=== PATIENT | female | born 1945 ===

== ENCOUNTER 2017-07-21 09:24 | Day surgery (SDC) | payer MEDICARE, MEDICAID ==
[2017-07-21] VITALS (9 sets, daily range): BP systolic 83–148; BP diastolic 44–69
[~2017-07-21] VITALS: Ht 154.9 cm; Wt 61.2 kg
[~2017-07-21 09:24] MED LIST: AMLODIPINE BESYL5 MG ORAL; ASPIRIN-LOW81 MG ORAL; CALCIUM PO; GLIPIZIDE5 MG ORAL; METFORMIN HCL850 M1 ORAL; VASOTEC10 MG ORAL
--- NOTE | 2017-07-21 09:54 | Pre-Procedure Note/Attestation ---
Pre-Procedure Note/Attestation Complete Prior to Procedure Planned Procedure: right Procedure Narrative: percutaneous fixation of right fifth metatarsal fracture, possible open reduction internal fixation of right fifth metatarsal Indications for Procedure Pre-Operative Diagnosis: displaced fracture of right fifth metatarsal base pain right foot Attestation I attest that I discussed the nature of the procedure; its benefits; risks and complications; and alternatives (and the risks and benefits of such alternatives ), prior to the procedure, with the patient (or the patient's legal traveling sales representative). Discussed complications which include but are not limited to: non union, mal union, delayed union, chronic numbness / tingling, chronic pain, infection, dvt, pe, hematoma, seroma, need for screw removal, hardware pain, crps, anesthesia complications, . She verbalized agreement with surgical plan and we obtained consent. I attest that, if there was a reasonable possibility of needing a blood transfusion, the patient (or the patient's legal traveling sales representative) was given the [place] [employer] standardized written summary, pursuant to the [place] Blood Safety Act ([place] Health and Safety Code # 1645, as amended). I attest that I re-evaluated the patient just prior to the surgery and that there has been no change in the patient's H&P, except as documented below: N/A HOLLY GONGORA M.D. Jul 21, 2017 09:54
[2017-07-21] MEDS ORDERED: Lidocaine 1% Plain 30 ml INJ ONE (10:18)
[2017-07-21] MEDS ORDERED: Bupivacaine 0.25% Inj 30ml INJ ONE (10:18)
[2017-07-21] MEDS ORDERED: Propofol 1,000mg/ 100ml btl IV ONE (11:00)
[2017-07-21] MEDS ORDERED: fentaNYL 100 mcg/2 mL IV ONE (11:00)
[2017-07-21] MEDS ORDERED: LR 1000ml ONE (11:00)
[2017-07-21] MEDS ORDERED: NS Irrig 1000ml IRRIG ONE (11:45)
[2017-07-21] MEDS ORDERED: Midazolam 2mg/2ml Inj IVP PRN (12:45)
[2017-07-21] MEDS ORDERED: Metoclopramide 10mg/2ml Inj IVP PRN (12:45)
[2017-07-21] MEDS ORDERED: DiphenhydrAMINE 50mg/ml Inj IVP PRN (12:45)
[2017-07-21] MEDS ORDERED: Morphine Sulfate 2mg/ml Inj IVP PRN (12:45)
[2017-07-21] MEDS ORDERED: fentaNYL 100 mcg/2 mL IV PRN (12:45)
[2017-07-21] MEDS ORDERED: Ketorolac 30mg Inj IV PRN (12:45)
--- NOTE | 2017-07-21 12:49 | Operative Note - PDOC ---
Operative Note Operative Note Pre-op Diagnosis: displaced fracture of right fifth metatarsal base pain right foot Procedure: percutaneous fixation of right fifth metatarsal bone Post-op Diagnosis: same as pre op Post-op Diagnosis: same as pre-op Surgeon: holly gongora dpm Microchip Specialist: none Additional Surgeons: declan vaughn wilcox Anesthesiologist: paty Anesthesia: local, MAC Specimen: none Complications: none Condition: stable Fluids: see anesthesia Estimated Blood Loss: minimal - 5cc Drains: none Packing: na Tourniquet time: 42 Implant(s) used?: No Indications for Procedure right fifth displaced metatarsal fracture Description of Procedure see op note HOLLY GONGORA M.D. Jul 21, 2017 12:49
--- NOTE | 2017-07-21 12:49 | Anethesia Preoperative Eval ---
Anesthesia Pre-op PMH/ROS General Date of Evaluation: Jul 21, 2017 Time of Evaluation: 11:00 Anesthesiologist: SALINA ASA Score: ASA 2 Mallampati Score Class I : Soft palate, uvula, fauces, pillars visible Class II: Soft palate, uvula, fauces visible Class III: Soft palate, base of uvula visible Class IV: Only hard plate visible Mallampati Classification: Class II Surgeon: Wanda Diagnosis: Right fifth metatarsal fracture Surgical Procedure: ORIF Social History: alcohol use Allergies: Coded Allergies: No Known Allergies (Unverified , 07/20/17) Medications: see eMAR Anesthesia Pre-op Phys. Exam Physician Exam Last Vital Signs Date Time Temp Pulse Resp B/P (MAP) Pulse Ox O2 Delivery O2 Flow Rate FiO2 07/21/17 09:52 98.0 77 18 148/69 99 Room Air Respiratory: CTA Gastrointestinal: S/NT/ND Airway Exam Mallampati Score: Class II ROM: full Dentures: upper Anesthesia Pre-op A/P Risk Assessment & Plan Status Change Before Surgery: No Pre-Antibiotics Drug: Ancef Given Within 1 Hr of Incision: Yes Time Given: 11:30 Juma Bass M.D. Jul 21, 2017 12:49
--- NOTE | 2017-07-21 12:52 | Immediate Post-Op Evaluation ---
Immediate Post-Op Evalulation Immediate Post-Op Evalulation Procedure: ORIF Fifth Right Metatarsal Date of Evaluation: Jul 21, 2017 Time of Evaluation: 13:00 IV Fluids: 500 Blood Products: 0 Estimated Blood Loss: 5 Urinary Output: 0 Blood Pressure Systolic: 80 Blood Pressure Diastolic: 49 Pulse Rate: 78 Respiratory Rate: 13 O2 Sat by Pulse Oximetry: 99 Temperature (Fahrenheit): 97.6 Pain Score (1-10): 0 Nausea: No Vomiting: No Patient Status: awake, reacts Hydration Status: adequate Drug: Ancef Given Within 1 Hr of Incision: Yes Time Given: 11:30 Juma Bass M.D. Jul 21, 2017 12:52
--- NOTE | 2017-07-21 12:53 | 48 Hour Post Anesthesia Eval ---
Post Anesthesia Evaluation Procedure: ORIF Fifth Right Metatarsal Date of Evaluation: Jul 23, 2017 Time of Evaluation: 10:00 Blood Pressure Systolic: 88 Pulse Rate: 78 Respiratory Rate: 11 Temperature (Fahrenheit): 98.6 O2 Sat by Pulse Oximetry: 99 Nausea: No Vomiting: No Pain Intensity: 0 If pain is > 6 Comment: 0 Hydration Status: adequate Mental Status/LOC: patient returned to baseline Follow-up care needed: patient intructions given Juma Bass M.D. Jul 21, 2017 12:53
--- NOTE | 2017-07-21 20:16 | Operative Note - Dictated ---
DATE OF OPERATION: 07/21/2017 TIME OF SURGERY: 11:30 a.m. PREOPERATIVE DIAGNOSES: 1. Displaced fracture of the right fifth metatarsal base. 2. Pain in right foot. POSTOPERATIVE DIAGNOSES: 1. Displaced fracture of the right fifth metatarsal base. 2. Pain in right foot. PROCEDURE PERFORMED: Percutaneous fixation of the right fifth metatarsal bone. SURGEON: Cody Muñoz D.P.M. CHARGE MASTER SPECIALIST: None. ADDITIONAL SURGEON: González Smyth M.D., as wilcox. ANESTHESIOLOGIST: Dr. Bass. ANESTHESIA PERFORMED: MAC with local with a total of 18 mL of 1:1 mixture of 1% lidocaine plain and 0.25% Marcaine plain in the field block as well as the sural nerve block. SPECIMENS: None. COMPLICATIONS: None. CONDITION: Stable. FLUIDS: See anesthesia records. ESTIMATED BLOOD LOSS: Less than 5 mL. DRAINS: None. PACKING: None. TOURNIQUET TIME: 42. INDICATION FOR PROCEDURE: This is a 72-year-old female who [place] complaining of one-month history of pain to the right foot. She states she saw Dr. Roman recently and was told she had an avulsion fracture of the fifth metatarsal base on the right. She has continued pain with weightbearing and nonweightbearing. I was able to visualize the radiographs and we discussed that there was 3.44 mm of displacement noted at the fifth metatarsal base and this likely would need fixation. She verbalized and consented for the surgery. I discussed all the risks, benefits, and potential complications of the procedure including but not limited to damage to the surrounding structures, malunion, nonunion, delayed union, hematoma, seroma, blood clots, DVT,PE, the anesthesia complications, chronic numbness, chronic tingling, chronic pain, and hardware pain. She verbalized agreement with the surgery of care. DESCRIPTION OF PROCEDURE: The patient was brought to the operating suite, placed in supine position with bump under the right hip on the operating table and secured in place. Appropriate time-out was performed identifying the correct patient, procedure, and limb. The right lower extremity was then prepped and draped in the usual sterile fashion. I made a 1-cm stab incision along the lateral aspect of the mid foot just proximal, dorsal, and superior to the fifth metatarsal base. I visualized the sural nerve and I retracted this plantarly using a Ragnell. At this time, I was able to use blunt dissection using a hemostat to get to the level of the periosteum. I confirmed this using a Bullock elevator on C-arm. At this time, I was able to visualize the peroneus brevis tendon and this was just superior to where my K-wire placement was going to be. I then placed a K-wire using [place]'s percutaneous screw fixation set and this was run into the metatarsal base being able to visualize on AP and lateral views on the C-arm and also at times going wide to be able to be happy with the placement of the K-wire. We checked it on AP and lateral views and we were happy with the satisfactory placement of this pin. At this time, we then countersunk the base of the fifth metatarsal. At that time, we were able to confirm our placement was adequate and there was good fixation of the fracture site. I then closed the subcutaneous tissue being able to verify that the sural nerve was not damaged using 4-0 Vicryl suture and then I closed the skin with horizontal mattress with 4-0 nylon sutures. This marked the completion of the case. I dressed it with Adaptic, 4 x 4, Kerlix, and Webril and then I placed a posterior splint using 10 sheets of plaster and wrapped it with two and Maximilian bandages. DISPOSITION: The patient tolerated the anesthesia and procedure well without any complications. She was transferred to PACU with vital signs stable and neurovascular status intact to the right foot as noted by immediate hyperemia of the digits, #1 through #5, upon completion of the case. Tourniquet time ended up being 42 minutes. I discussed with the patient she will be nonweightbearing on right lower extremity using crutches and posterior splint for two weeks. At that time, we will transition her into a CAM boot. In two weeks, I will remove the stitches and we will place her in CAM walking boot for four weeks. I discussed icing about the right for 10 minutes twice daily for two weeks. We will give her a prescription for Tylenol with Codeine, #30. Follow up with me on next [place]. Cody Muñoz M.D. DR: ARCELIA JOB#: [id number] CC:
--- NOTE | 2017-07-22 11:55 | Diagnostic Imaging Report ---
Indication: PAIN, intraoperative images Technique: Intraoperative image Comparison: None Findings: Intraoperative images document surgical repair of what is probably a fifth metatarsal fracture or osteotomy using a surgical screw. Impression: Intraoperative imaging, as described
--- NOTE | 2017-07-24 10:30 | Diagnostic Imaging Report ---
Indication: Pain Technique: XRAY FOOT MIN 3V RIGHT Comparison: Placement fluoroscopic images from surgical procedure. Findings: Overlying cast obscures fine bony and soft tissue detail. The patient is status post open reduction internal fixation of fracture the base of the fifth metatarsal by means of a single screw. There is no evidence of hardware-related complication. No additional fracture is identified. Anatomic alignment appears preserved. There are vascular calcifications. Impression: Status post open reduction internal fixation of fracture of the base of the fifth metatarsal. No new fracture identified.
== END 2017-07-21 15:05 | disposition home or self-care (01) ==
LOC: SUR 09:24
DX: S92.351A Displaced fracture of fifth metatarsal bone, right foot, initial encounter for closed fracture (principal); I10 Essential (primary) hypertension; Z90.710 Acquired absence of both cervix and uterus; Z79.82 Long term (current) use of aspirin; X58.XXXA Exposure to other specified factors, initial encounter; Y93.9 Activity, unspecified; Y92.9 Unspecified place or not applicable
CPT/HCPCS: 28470; 73620; 73630; 76000; 82962; 97161; C1713; G8978; G8979; G8980; J0690; J2001; J2250; J2704; J3010; J3490; J7120; 94003; 94150